=== PATIENT | male | born 1945 | race Caucasian/White ===

== ENCOUNTER 2016-07-19 15:03 | Emergency (ER) | payer OTHER ==
[~2016-07-19] VITALS: Ht 170.2 cm; Wt 83.3 kg
[~2016-07-19 15:03] MED LIST: BEE500CH2 PO
[2016-07-19 15:06] VITALS: TEMP 37; Ht 170.2 cm; Wt 83.3 kg
[2016-07-19] MEDS ORDERED: ALBUTEROL HFA 8 GM INHALER INH ONE (17:00)
[2016-07-19] MEDS ORDERED: AZITHROMYCIN 250 MG TAB PO ONE (17:00)
[2016-07-19] MEDS ORDERED: BENZONATATE 100MG CAP PO ONE (17:00)
--- NOTE | 2016-07-19 17:16 | DIAGNOSTIC IMAGING REPORT ---
CHEST ONE VIEW PORTABLE CLINICAL HISTORY: cough dyspnea COMPARISON STUDY: No previous studies for comparison. FINDINGS: The bones soft tissues and hemidiaphragms are normal. The cardiomediastinal silhouette is normal. The lungs are clear. The pulmonary vasculature is normal. IMPRESSION: Negative chest. Electronically signed by: Francisco Robles M.D. 07/19/2016 5:14 PM Dictated Date/Time: 07/19/2016 5:14 PM
[2016-07-19] MEDS ORDERED: BENZ1CAP90 PO (17:35)
[2016-07-19] MEDS ORDERED: AZITTAB PO (17:35)
--- NOTE | 2016-07-19 17:36 | EMERGENCY ROOM VISIT NOTE ---
History Report prepared by Christopher: Sarah Rodriguez Under the Supervision of: Dr. José Miguel eVga D.O. First contact with patient: 16:47 Chief Complaint: COUGH Stated Complaint: CHEST PAIN, COUGH Nursing Triage Summary: pt has cough started 3 weeks ago unable to bring it up and out. has chest congestion. has white clear mucus with cough History of Present Illness The patient is a 71 year old male who presents to the Emergency Room with complaints of a constant cough beginning 3 weeks prior to arrival. The patient notes that the cough is primarily a dry one with occasional white sputum. He does note he is congested. The patient's family recently had the same symptoms He denies any other symptoms at this time. Source of History: patient Onset: 3 weeks RECORDS MANAGER Position: other Quality: other (cough) Timing: constant Note: Patient is experiencing congestion and sputum. He denies any other symptoms at this time. Review of Systems See HPI for pertinent positives & negatives. A total of 10 systems reviewed and were otherwise negative. Past Medical & Surgical Medical Problems: (1) Chicken pox (2) No significant medical problems Surgical Problems: (1) No significant past surgical history Family History Asthma Social History Smoking Status: Never Smoker Alcohol Use: none Marital Status: Housing Status: lives with family Occupation Status: retired Current/Historical Medications Scheduled Azithromycin (Zithromax Z-Dagoberto), 0 PO UD Bee Pollen (Bee Pollen), Unknown Dose PO DAILY Glucosamine-Chondroitin (Osteo Bi-Flex Regular Str), 1 TAB PO DAILY Multiple Vitamins W/ Minerals (Centrum), 1 TAB PO DAILY Scheduled PRN Benzonatate (Tessalon Perles), 200 MG PO Q4H PRN for Cough Allergies Coded Allergies: Latex (Verified Allergy, Intermediate, rash, 07/19/16) Physical Exam Vital Signs Date Time Temp Pulse Resp B/P Pulse Ox O2 Delivery O2 Flow Rate FiO2 07/19/16 16:36 70 07/19/16 16:34 68 20 142/84 97 Room Air 07/19/16 15:06 37.0 89 18 122/86 94 Room Air Pain Rating (0-10): 0 Physical Exam CONSTITUTIONAL/VITAL SIGNS: Reviewed / noted above. GENERAL: Non-toxic in appearance. INTEGUMENTARY: Warm, dry, and [place]. HEAD: Normocephalic. EYES: without scleral icterus or trauma. ENT/OROPHARYNX: clear and moist. LYMPHADENOPATHY/NECK: Is supple without lymphadenopathy or meningismus. RESPIRATORY: Lungs clear and equal. CARDIOVASCULAR: Regular rate and rhythm. GI/ABDOMEN: Soft and nontender. No organomegaly or pulsatile mass. No rebound or guarding. Normal bowel sounds. EXTREMITIES: Warm and well perfused. BACK: No CVA tenderness. NEUROLOGICAL: Intact without focal deficits. PSYCHIATRIC: normal affect. MUSCULOSKELETAL: Normally developed with good muscle tone. Medical Decision & Procedures ER Provider Diagnostic Interpretation: X ray results and stated below per my interpretation and radiology interpretation. CHEST ONE VIEW PORTABLE CLINICAL HISTORY: cough dyspnea COMPARISON STUDY: No previous studies for comparison. FINDINGS: The bones soft tissues and hemidiaphragms are normal. The cardiomediastinal silhouette is normal. The lungs are clear. The pulmonary vasculature is normal. IMPRESSION: Negative chest. Electronically signed by: Francisco Robles M.D. 07/19/2016 5:14 PM Dictated Date/Time: 07/19/2016 5:14 PM Medications Administered Medications (Trade) Dose Ordered Sig/Wang Route Start Time Stop Time Status Last Admin Dose Admin Albuterol (Ventolin Hfa Inhaler) 2 puffs NOW ONCE INH 07/19/16 17:00 07/19/16 17:01 DC 07/19/16 17:21 2 PUFFS Benzonatate (Tessalon Perles Cap) 100 mg NOW ONCE PO 07/19/16 17:00 07/19/16 17:01 DC 07/19/16 17:21 100 MG Azithromycin (Zithromax Tab) 500 mg NOW ONCE PO 07/19/16 17:00 07/19/16 17:01 DC 07/19/16 17:20 500 MG ED Course 1647: Previous medical records were reviewed. The patient was evaluated in room B10. A complete history and physical examination was performed. 1700: Zithromax Tab 500 mg PO, Tessalon Perles Cap 100 mg PO, Ventolin Hfa Inhaler 2 puffs INH. 1737: On reevaluation, the patient is hemodynamically stable. I discussed the results and findings with the patient. He verbalized agreement of the treatment plan. He was discharged home. Medical Decision the differential was considered includes acute myocardial infarction, acute coronary syndrome, myocarditis, pericarditis, pericardial effusions /tamponade, esophageal perforation, pulmonary embolism, pneumonia, pneumothorax, cardiomyopathy, congestive heart, anemia , COPD/asthma exacerbation. This is a 71-year-old male who presents to the ED with a chief complaint of a cough for the past 4 weeks. He states that the cough is bad at times that he cannot sleep. He denies any other significant symptoms. He states it is a dry cough. The patient's exam was unremarkable. The lungs appear to be diminished but clear. A chest x-ray did not show acute disease. The patient was given Tessalon Perles, Zithromax and a albuterol inhaler. He was discharged on these. He will follow-up with his PCP or return if symptoms worsen. Impression Primary Impression: Acute bronchitis Scribe Attestation The scribe's documentation has been prepared under my direction and personally reviewed by me in its entirety. I confirm that the note above accurately reflects all work, treatment, procedures, and medical decision making performed by me. Departure Information Dispostion Home / Self-Care Prescriptions Azithromycin (ZITHROMAX Z-DAGOBERTO) 250 Mg Tab 0 PO UD, #1 PKT 2 TABS DAY 1, THEN 1 TAB DAILY FOR 4 DAYS Prov: José Miguel Vega D.O. 07/19/16 Benzonatate (Tessalon Perles) 200 Mg Cap 200 MG PO Q4H Y for Cough, #20 CAP Prov: José Miguel Vega D.O. 07/19/16 Referrals No Doctor, Assigned (PCP) Forms HOME CARE DOCUMENTATION FORM, IMPORTANT VISIT INFORMATION Patient Instructions Bronchitis Acute, My [facility] Additional Instructions Zithromax as prescribed. Albuterol inhaler 2 puffs every 4 hours as needed. Tessalon Perles as prescribed,.
[2016-07-19 18:01] VITALS: BP 120/74; PULSE 69; O2SAT 93
[2016-11-18] MEDS ORDERED: GLUCTAB18 PO (16:41)
[2016-11-18] MEDS ORDERED: MULTTAB5 PO (16:41)
== END 2016-07-19 18:02 | disposition home or self-care (01) ==
LOC: C.EDB 15:05
DX: J20.9 Acute bronchitis, unspecified (principal)

== ENCOUNTER 2016-08-04 00:50 | Emergency (ER) | payer OTHER ==
[~2016-08-04] VITALS: Ht 170.2 cm; Wt 85.9 kg
[~2016-08-04 00:50] MED LIST changes: +BENZ1CAP90 PO
[2016-08-04 00:52] VITALS: TEMP 36.7; Ht 170.2 cm; Wt 85.9 kg
[2016-08-04] MEDS ORDERED: DOXYCYCLINE HYCLATE 100 MG CAP PO STA (01:07)
--- NOTE | 2016-08-04 01:12 | EMERGENCY ROOM VISIT NOTE ---
ED Visit Note First contact with patient: 00:57 CHIEF COMPLAINT: Tick bite HISTORY OF PRESENT ILLNESS: This patient noticed a tick embedded in the right side of the abdomen/flank this evening. The patient states that he believes he received a take yesterday when he went [facility] a [facility]. He noticed it this evening. He is unsure of the total duration and is been in the side. There is a small area of red around the tick that is still in the side. He denies any fevers, chills, flulike symptoms or any joint pain. REVIEW OF SYSTEMS: A complete 6-point Review of Systems was discussed with the patient, with pertinent positives and negatives listed in the History of Present Illness. All remaining Review of Systems questions can be considered negative unless otherwise specified. PMH: No pertinent past medical history. SOCIAL HISTORY: Patient lives at home. PHYSICAL EXAM: Vital Signs: Reviewed Nurse's notes. There is a small zone of erythema surrounding a live tick in the right flank. The skin is otherwise clear. NEUROLOGICAL: Alert and cooperative. Sensory and motor functions grossly intact. ED COURSE: Patient was seen and evaluated as above. He was evidence of a live tick in the patient's right flank. The tick is not engorged. The tick was removed without difficulty utilizing a tick remover. Patient tolerated this well. He was given 200 mg of doxycycline as a total duration of the tick was unknown. No evidence of Lyme disease at this time. He was given his Adacel vaccination as he states he is unsure if he is up-to-date. He was educated upon worrisome symptoms which to return, and educated follows family doctor regarding today's visit and for recheck of his blood pressure. He was discharged home in good condition. Problem List Medical Problems: (1) Chicken pox Status: Resolved Surgical Problems: (1) No significant past surgical history Status: Chronic Current/Historical Medications Scheduled Bee Pollen (Bee Pollen), Unknown Dose PO DAILY Glucosamine-Chondroitin (Osteo Bi-Flex Regular Str), 1 TAB PO DAILY Multiple Vitamins W/ Minerals (Centrum), 1 TAB PO DAILY Scheduled PRN Benzonatate (Tessalon Perles), 200 MG PO Q4H PRN for Cough Allergies Coded Allergies: Latex (Verified Allergy, Intermediate, rash, 07/19/16) Vital Signs Date Time Temp Pulse Resp B/P Pulse Ox O2 Delivery O2 Flow Rate FiO2 08/04/16 00:52 36.7 85 20 151/99 94 Room Air Medications Administered Medications (Trade) Dose Ordered Sig/Wang Route Start Time Stop Time Status Last Admin Dose Admin Doxycycline Hyclate (Vibramycin Cap) 200 mg ONE STAT PO 08/04/16 01:07 08/04/16 01:08 DC 08/04/16 01:15 200 MG Departure Information Impression Primary Impression: Tick bite Dispostion Home / Self-Care Condition GOOD Referrals Emilie Lala PA-C (PCP) Patient Instructions My [facility] Additional Instructions You were seen in the emergency Department for a tick bite. You were given 200 mg of doxycycline to help prevent potential Lyme disease. Please watch for symptoms of Lyme disease: Early Signs and Symptoms (3 to 30 days after tick bite) Fever, chills, headache, fatigue, muscle and joint aches, and swollen lymph nodes Erythema migrans (EM) rash: Occurs in approximately 70 to 80 percent of infected persons Begins at the site of a tick bite after a delay of 3 to 30 days (average is about 7 days) Expands gradually over a period of days reaching up to 12 inches or more (30 cm ) across May feel warm to the touch but is rarely itchy or painful Sometimes clears as it enlarges, resulting in a target or bull's-eye appearance May appear on any area of the body Later Signs and Symptoms (days to months after tick bite) Severe headaches and neck stiffness Additional EM rashes on other areas of the body Arthritis with severe joint pain and swelling, particularly the knees and other large joints. Facial palsy (loss of muscle tone or droop on one or both sides of the face) Intermittent pain in tendons, muscles, joints, and bones Heart palpitations or an irregular heart beat (Lyme carditis) Episodes of dizziness or shortness of breath Inflammation of the brain and spinal cord Nerve pain Shooting pains, numbness, or tingling in the hands or feet Problems with short-term memory Please follow-up with your family doctor if you develop these. Please return to the emergency department with any new/concerning symptoms.
--- NOTE | 2016-08-04 01:26 | EMERGENCY ROOM VISIT NOTE ---
ED Visit Note First contact with patient: 00:57 I saw this patient in conjunction with Nik Schwarz PA-C. I agree with his decision-making and treatment plan.
[2016-08-04] MEDS ORDERED: DIPHTHERIA/TETANUS/PERTUSSIS 0.5 ML SYR/VIAL IM. ONE (01:30)
[2016-08-04 01:38] VITALS: BP 149/97; PULSE 91; O2SAT 98
[2017-02-23] MEDS ORDERED: GLUCTAB18 PO (16:41)
[2017-02-23] MEDS ORDERED: MULTTAB5 PO (16:41)
== END 2016-08-04 01:39 | disposition home or self-care (01) ==
LOC: C.EDB 00:51 → C.EDD 01:39
DX: S30.870A Other superficial bite of lower back and pelvis, initial encounter (principal); W57.XXXA Bitten or stung by nonvenomous insect and other nonvenomous arthropods, initial encounter; Z23 Encounter for immunization

== ENCOUNTER 2016-11-18 20:12 | Emergency (ER) | payer OTHER ==
[~2016-11-18] VITALS: Ht 170.2 cm; Wt 84.9 kg
[~2016-11-18 20:12] MED LIST changes: -BEE500CH2 PO; -BENZ1CAP90 PO; +GLUCTAB18 PO; +MULTTAB5 PO
[2016-11-18 20:15] VITALS: TEMP 37; Ht 170.2 cm; Wt 84.9 kg
[2016-11-18] MEDS ORDERED: BCTCR/30 EXT (20:29)
[2016-11-18] MEDS ORDERED: DPRSCR15 TOP (20:29)
[2016-11-18] MEDS ORDERED: [UNRECOGNIZED DRUG - CODE] TOP (20:29)
[2016-11-18] MEDS ORDERED: METH4PAK PO (21:45)
--- NOTE | 2016-11-18 21:47 | EMERGENCY ROOM VISIT NOTE ---
History First contact with patient: 20:22 Chief Complaint: RASH Stated Complaint: RED ITCHY RASH History of Present Illness The patient is a 71 year old male who presents to the Emergency Room with complaints of a red itchy rash times one month. The patient states that one month ago after hiking in the [place], he developed a rash on his right arm. He states that the rash has been spreading to his back, abdomen and legs and he has multiple scabbed regions. He was initially seen by his primary care provider, who sent him to a waste machine operator. The waste machine operator prescribed him prednisone, mupirocin and a topical steroid which she has been using without relief. He states that he finished the prednisone a few weeks ago. He has a history of measles, mumps and chickenpox as a child. He states that the rash is itchy, but not painful. He denies any new medications, detergents or soaps. Review of Systems A complete 10 point review of systems was reviewed with the patient with pertinent positives and negatives as per history of present illness. All else were negative. Past Medical/Surgical History Medical Problems: (1) Chicken pox (2) No significant medical problems Surgical Problems: (1) No significant past surgical history Family History Asthma Social History Smoking Status: Never Smoker Alcohol Use: none Marital Status: Housing Status: lives with family Occupation Status: retired Current/Historical Medications Scheduled Glucosamine-Chondroitin (Osteo Bi-Flex Regular Str), 1 TAB PO DAILY Homeopathic Products (Tecnu Extreme Medicated P), 1 APPLN TOP prn Methylprednisolone (Medrol Dosepak), 0 PO DAILY Multiple Vitamins W/ Minerals (Centrum), 1 TAB PO DAILY Mupirocin 2% (Bactroban 2%), 1 APPLN EXT UD Scheduled PRN Betamethasone Dip (Betamethasone Dipropionat), 1 APPLN TOP BID PRN for RASH Physical Exam Vital Signs Date Time Temp Pulse Resp B/P (MAP) Pulse Ox O2 Delivery O2 Flow Rate FiO2 11/18/16 21:59 73 18 146/78 95 11/18/16 20:15 37.0 88 20 134/85 96 Room Air Physical Exam VITALS: Vitals are noted on the nurse's note and reviewed by myself. Vital signs stable. GENERAL: This is a 71-year-old male, in no acute distress, nondiaphoretic, well- developed well-nourished. SKIN: There is an erythematous, raised rash to bilateral arms as well as multiple crusted lesions to the chest and back. This is blanchable. There are no vesicular lesions. HEART: Regular rate and rhythm without murmurs gallops or rubs. LUNGS: Clear to auscultation bilaterally without wheezes, rales or rhonchi. NEURO: Patient was alert and oriented to person place and time. Medical Decision & Procedures Medical Decision Differential diagnosis includes Trammell-Ike syndrome, contact dermatitis, allergic dermatitis, shingles, chickenpox, among others. The patient was evaluated as above. His rash is most consistent with a contact dermatitis, although there are some areas which appear to be mildly secondarily infected. The patient will be placed on a Medrol Dosepak and was instructed to continue the topical medications prescribed by the waste machine operator. He was instructed to again follow-up with the waste machine operator for further recommendations. He verbalized understanding of my assessment and treatment plan and was discharged home in good condition. Medication Reconcilliation Current Medication List: was personally reviewed by me Blood Pressure Screening Patient's blood pressure: Elevated blood pressure Blood pressure disposition: Elevated BP felt to be situational Impression Primary Impression: Contact dermatitis Departure Information Dispostion Home / Self-Care Condition GOOD Prescriptions Methylprednisolone (MEDROL DOSEPAK) 4 Mg Dagoberto 0 PO DAILY, #1 PKT Prov: Franchesca Arredondo .KEL 11/18/16 Referrals Emilie Lala PA-C (PCP) Patient Instructions My [facility] Additional Instructions You have been prescribed a Medrol Dosepak. This is a steroid which will help decrease your inflammation, redness, and itch. Take the medicine as prescribed. Take the ENTIRE 6 day course of the steroids. You should take Benadryl (diphenhydramine) 25-50 mgs every 6 hours as needed for symptoms. You can find this medicine [id number]. Benadryl can help reduce your symptoms. You should take it for the next 3 days or until your symptoms have subsided. Be aware that Benadryl can make you drowsy. If the Benadryl makes you drowsy, you may try an antihistamine such as Claritin , Zyrtec, or Faith over the counter. Follow-up with your waste machine operator for further evaluation. Problem Qualifiers Primary Impression: Contact dermatitis
[2016-11-18 21:59] VITALS: BP 146/78; PULSE 73; O2SAT 95
== END 2016-11-18 22:00 | disposition home or self-care (01) ==
LOC: C.EDB 20:13 → C.EDD 22:00
DX: L25.9 Unspecified contact dermatitis, unspecified cause (principal); Z82.5 Family history of asthma and other chronic lower respiratory diseases

== ENCOUNTER 2017-02-23 17:19 | Emergency (ER) | payer OTHER ==
[~2017-02-23] VITALS: Ht 170.2 cm; Wt 85.8 kg
[~2017-02-23 17:19] MED LIST changes: +BCTCR/30 EXT; +DPRSCR15 TOP; +[UNRECOGNIZED DRUG - CODE] TOP
[2017-02-23 17:24] VITALS: TEMP 36.7; Ht 170.2 cm; Wt 85.8 kg
[2017-02-23] MEDS ORDERED: hydrOXYzine HCL 25 MG TAB PO STA (17:44)
[2017-02-23] MEDS ORDERED: [UNRECOGNIZED DRUG - CODE] TOP (18:08)
[2017-02-23 18:09] LABS: BASO % 0.7 %; BASO ABS # 0.05 K/uL (0-0.2); COMPLETE YES; EOS % 4.7 %; IG% 2.3 %; LYMPH ABS # 1.71 K/uL (1.2-3.4); MEAN CELL VOLUME 87.5 fL (80-100); MEAN CORPUSCULAR HEMOGLOBIN 30.5 pg (25-34); MEAN CORPUSCULAR HGB CONC 34.9 g/dl (32-36); MONO % 7.9 %; NEUT % 61.4 %; PLATELET COUNT 197 K/uL (130-400); RED BLOOD COUNT 5.14 M/uL (4.7-6.1); WHITE BLOOD COUNT 7.43 K/uL (4.8-10.8)
[2017-02-23 18:30] LABS: BUN/CREATININE RATIO 18.5 (10-20); CALCIUM 9.4 mg/dl (8.5-10.1); CREATININE 1.03 mg/dl (0.60-1.40); POTASSIUM 4.1 mmol/L (3.5-5.1)
[2017-02-23 18:33] LABS: ALB/GLOB RATIO 1.2 (0.9-2)
--- NOTE | 2017-02-23 18:38 | EMERGENCY ROOM VISIT NOTE ---
ED Visit Note First contact with patient: 17:29 CHIEF COMPLAINT: Rash, itchiness HISTORY OF PRESENT ILLNESS: This 72-year-old male patient presents to the emergency department ambulatory, complaining of a rash on his arms, back, torso , abdomen, which started approximately 4-5 months ago. The patient states he had been out hiking in the [place] in [place], and then has been experiencing this rash. He was seen here in October for the rash and was given a Medrol Dosepak. He states he did see the form grader was prescribed prednisone, however his does not feel that the prednisone was a high enough dosage. Instead of contacting the form grader, the patient just never went back, and has been dealing with a rash on his own. He states he believes he is allergic to Benadryl, and is unable to take the medication due to some sort of side effect he may have had as a child. He has been using OTC cortisone 10, however has been using no other creams. The patient has not had any recent lab work completed. He states the only thing that helps is cool water. The prednisone did help with his symptoms, however, it did not seem to be quite enough. The patient denies fever, chills, nausea, or loss of appetite. They deny any URI symptoms. The patient states the rash is itchy and rates the discomfort as 0/ 10. No change in food, soap, detergents, or other environmental factors. No new medications. No weakness or numbness. REVIEW OF SYSTEMS: A 6 system review of systems was completed with positives and pertinent negatives listed in the HPI. ALLERGIES: Latex paint, Benadryl MEDICATIONS: See list PMH: None SOCIAL HISTORY: Lives locally with family. He denies drug, alcohol, tobacco use. PHYSICAL EXAM: Vital Signs: Reviewed Nurse's notes, vital signs stable. GENERAL : This is a 72-year-old white male, in no acute distress, well-developed, well- nourished. SKIN: There are patchy, erythematous lesions which have a fine, silvery scale overlying them. Excoriations are noted on bilateral arms. Capillary refill less than 2 seconds. EMERGENCY DEPARTMENT COURSE: He was seen and evaluated as above. Basic lab work was drawn due to his history of chronic rash. The patient was given hydroxyzine and did note improvement in his itchiness. I discussed the case with Dr. Sahu, who did see and evaluate the patient. Patient will be discharged on prednisone and hydroxyzine. I discussed with him the importance of following up with dermatology. The patient states he does not know if he wants to go back to the form grader he had previously seen, as this form grader looks like Cris. The patient was provided with a list of dermatologists and encouraged to follow-up with one of them outpatient. Discharge instructions reviewed and the patient was discharged home in good condition. I attest that I have personally reviewed the patient's current medication list. Patient was found to have normal blood pressure on screening and does not require follow-up. DIFFERENTIAL DIAGNOSIS: Dermatitis, eczema, poison, psoriasis, fungal infection , candidiasis, liver disease, malignancy, and others DIAGNOSIS: Eczema, psoriasis Problem List Medical Problems: (1) Chicken pox Status: Resolved Surgical Problems: (1) No significant past surgical history Status: Chronic Current/Historical Medications Scheduled Glucosamine-Chondroitin (Osteo Bi-Flex Regular Str), 2 TABS PO DAILY Multiple Vitamins W/ Minerals (Centrum), 1 TAB PO DAILY Prednisone (Prednisone), 0 PO DAILY Scheduled PRN Hydroxyzine Pamoate (Vistaril), 25-50 MG PO Q6H PRN for Itching [Cortisone-10], 1 APPLN TOP UD PRN for Rash Allergies Uncoded Allergies: LATEX PAINT (Allergy, Unknown, Rash, 02/23/17) Vital Signs Date Time Temp Pulse Resp B/P (MAP) Pulse Ox O2 Delivery O2 Flow Rate FiO2 02/23/17 19:12 63 163/104 95 02/23/17 17:24 36.7 80 20 166/95 96 Room Air Laboratory Results 02/23/17 17:55 Red Blood Count 5.14, Mean Corpuscular Volume 87.5, Mean Corpuscular Hemoglobin 30.5, Mean Corpuscular Hemoglobin Concent 34.9, Mean Platelet Volume 9.0, Neutrophils (%) (Auto) 61.4, Lymphocytes (%) (Auto) 23.0, Monocytes (%) (Auto) 7.9, Eosinophils (%) (Auto) 4.7, Basophils (%) (Auto) 0.7, Neutrophils # (Auto) 4.56, Lymphocytes # (Auto) 1.71, Monocytes # (Auto) 0.59, Eosinophils # (Auto) 0.35, Basophils # (Auto) 0.05 02/23/17 17:55 Test 02/23/17 17:55 White Blood Count 7.43 K/uL (4.8-10.8) Red Blood Count 5.14 M/uL (4.7-6.1) Hemoglobin 15.7 g/dL (14.0-18.0) Hematocrit 45.0 % (42-52) Mean Corpuscular Volume 87.5 fL (80-100) Mean Corpuscular Hemoglobin 30.5 pg (25-34) Mean Corpuscular Hemoglobin Concent 34.9 g/dl (32-36) Platelet Count 197 K/uL (130-400) Mean Platelet Volume 9.0 fL (7.4-10.4) Neutrophils (%) (Auto) 61.4 % Lymphocytes (%) (Auto) 23.0 % Monocytes (%) (Auto) 7.9 % Eosinophils (%) (Auto) 4.7 % Basophils (%) (Auto) 0.7 % Neutrophils # (Auto) 4.56 K/uL (1.4-6.5) Lymphocytes # (Auto) 1.71 K/uL (1.2-3.4) Monocytes # (Auto) 0.59 K/uL (0.11-0.59) Eosinophils # (Auto) 0.35 K/uL (0-0.5) Basophils # (Auto) 0.05 K/uL (0-0.2) RDW Standard Deviation 41.8 fL (36.4-46.3) RDW Coefficient of Variation 13.1 % (11.5-14.5) Immature Granulocyte % (Auto) 2.3 % Immature Granulocyte # (Auto) 0.17 K/uL (0.00-0.02) Anion Gap 5.0 mmol/L (3-11) Est Creatinine Clear Calc Drug Dose 69.8 ml/min Estimated GFR () 84.9 Estimated GFR (Non- 73.3 BUN/Creatinine Ratio 18.5 (10-20) Calcium Level 9.4 mg/dl (8.5-10.1) Total Bilirubin 0.5 mg/dl (0.2-1) Aspartate Amino Transf (AST/SGOT) 43 U/L (15-37) Alanine Aminotransferase (ALT/SGPT) 53 U/L (12-78) Alkaline Phosphatase 69 U/L (45-117) Total Protein 7.6 gm/dl (6.4-8.2) Albumin 4.2 gm/dl (3.4-5.0) Globulin 3.4 gm/dl (2.5-4.0) Albumin/Globulin Ratio 1.2 (0.9-2) Medications Administered Medications (Trade) Dose Ordered Sig/Wang Route Start Time Stop Time Status Last Admin Dose Admin Hydroxyzine HCl (Vistaril Tab) 25 mg NOW STAT PO 02/23/17 17:44 02/23/17 17:45 DC 02/23/17 17:49 25 MG Departure Information Impression Primary Impression: Psoriasis Additional Impression: Eczema Dispostion Home / Self-Care Condition GOOD Prescriptions Hydroxyzine Pamoate (VISTARIL) 25 Mg Cap 25-50 MG PO Q6H Y for Itching, #30 CAP Prov: Shelia Jacobsen PA-C 02/23/17 Prednisone (Prednisone) 20 Mg Tab 0 PO DAILY, #18 TAB 3 DAILY FOR 3 DAYS, THEN 2 DAILY FOR 3 DAYS, THEN 1 DAILY FOR 3 DAYS. Prov: Shelia Jacobsen PA-C 02/23/17 Referrals Emilie Lala PA-C (PCP) Patient Instructions ED Dermatitis Atopic Eczema, [facility] Additional Instructions You were seen in the emergency department for a chronic rash. As discussed, you should follow-up with dermatology. You have been prescribed Prednisone. This is a steroid which will help decrease your inflammation, redness, and itch. Take this medicine as prescribed. Take the ENTIRE 9 day course. It is best to take steroids early in the morning as PM dosing can affect your sleeping patterns. You were prescribed hydroxyzine for itchiness. Please take this medication as directed. Please follow-up with dermatology. You were provided with a list of dermatologists in the area. Return to the ED for worsening rash, pus-like drainage, or fever. Follow-up in 2-3 days with your PCP for management until you can make it to dermatology. Problem Qualifiers Additional Impression: Eczema Eczema type: unspecified Qualified Codes: L30.9 - Dermatitis, unspecified
--- NOTE | 2017-02-23 18:39 | EMERGENCY ROOM VISIT NOTE ---
ED Visit Note First contact with patient: 17:29 I have personally evaluated this patient examined her and reviewed the pertinent labs and data. I have discussed the case with Shelia Jacobsen, the physician workforce development assistant and agree with the plan. Please refer to the PA note. This patient presents with itching rash on mostly on his torso. It's circular and in places looks a little scaly. He has no other systemic complaints. He has no mucous membrane involvement. He has no shortness of breath. He has no fever. He's been seen by team manager and was doing well on steroids when he was on them. On my exam, he is resting comfortably and appears in no distress. We will put him back on steroids and have him follow-up with dermatology.
[2017-02-23 19:12] VITALS: BP 163/104; PULSE 63; O2SAT 95
[2017-02-23] MEDS ORDERED: PRED20TA PO (19:28)
[2017-02-23] MEDS ORDERED: HYDR1CAP85 PO (19:29)
== END 2017-02-23 19:13 | disposition home or self-care (01) ==
LOC: C.EDB 17:20 → C.EDD 19:13
DX: L40.9 Psoriasis, unspecified (principal); L30.9 Dermatitis, unspecified

== ENCOUNTER 2017-08-15 18:23 | Emergency (ER) | payer OTHER ==
[~2017-08-15] VITALS: Ht 170.2 cm; Wt 82.8 kg
[~2017-08-15 18:23] MED LIST changes: -BCTCR/30 EXT; -DPRSCR15 TOP; +PRED20TA PO; +[UNRECOGNIZED DRUG - CODE] TOP; -[UNRECOGNIZED DRUG - CODE] TOP
[2017-08-15 18:26] VITALS: TEMP 36.6; Ht 170.2 cm; Wt 82.8 kg
--- NOTE | 2017-08-15 18:36 | EMERGENCY ROOM VISIT NOTE ---
History Report prepared by Christopher: Quentin Mallory Under the Supervision of: Dr. Lake Terrazas M.D. First contact with patient: 18:32 Chief Complaint: SKIN PROBLEM Stated Complaint: WELTS,SCABS,ITCHING,BURNING OF ARMS,LEGS,BACK History of Present Illness The patient is a 72 year old white male with a past medical history of an appendectomy who presents to the ED with a cc of worsening, itchy, rash beginning a year ago. Pt states he was [place] in [place] when he developed bumps on his right arm. He reports it now spread to his back and legs. Pt notes he tries washing it and putting cream on it, but it does not help. He states he was bit by a tick last year, but he was treated for it. Positive being evaluated by a mail superintendent, taking an antibiotic, and taking a steroid. Negative changes in detergent, creams, or clothing, and alcohol use. Source of History: patient Onset: one year ago Position: arm (bilateral), back, leg (bilateral) Quality: other (itchy rash) Timing: worsening Note: Associated symptoms: tick bite that was treated Denies: changes in detergent, creams, or clothing Review of Systems See HPI for pertinent positives and negatives. A total of ten systems were reviewed and were otherwise negative. Past Medical & Surgical Medical Problems: (1) Chicken pox (2) History of appendectomy Family History Asthma Hypertension Social History Smoking Status: Never Smoker Alcohol Use: none Marital Status: Housing Status: lives with family Occupation Status: retired Current/Historical Medications Scheduled Multiple Vitamins W/ Minerals (Centrum), 1 TAB PO DAILY Allergies Uncoded Allergies: LATEX PAINT (Allergy, Unknown, Rash, 02/23/17) Physical Exam Vital Signs Date Time Temp Pulse Resp B/P (MAP) Pulse Ox O2 Delivery O2 Flow Rate FiO2 08/15/17 19:14 59 18 146/72 98 Room Air 08/15/17 18:26 36.6 67 18 133/78 96 Room Air Physical Exam GENERAL: Awake, alert, well-appearing, NAD HENT: Normocephalic, atraumatic. EYES: Normal conjunctiva. Sclera non-icteric. NECK: Supple. No nuchal rigidity. FROM. RESPIRATORY: CTAB, no rhonchi, wheezing, crackles CARDIAC: RRR, no MRG ABDOMEN: Soft, NTND, BS+ MSK: No chest wall TTP, no LE edema NEURO: GCS 15, CN 2-12 intact, moves all 4s on command SKIN: No jaundice noted. Confluent redness over the extensor surface of the bilateral upper extremities. Diffuse, more scant and in patches over the anterior shins. Several macules to over the abdomen. Forearms have well healing eschar. Medical Decision & Procedures Laboratory Results 08/15/17 19:10 Red Blood Count 4.57, Mean Corpuscular Volume 87.5, Mean Corpuscular Hemoglobin 30.4, Mean Corpuscular Hemoglobin Concent 34.8, Mean Platelet Volume 9.0, Neutrophils (%) (Auto) 69.1, Lymphocytes (%) (Auto) 16.8, Monocytes (%) (Auto) 7.3, Eosinophils (%) (Auto) 5.8, Basophils (%) (Auto) 0.4, Neutrophils # (Auto) 4.89, Lymphocytes # (Auto) 1.19, Monocytes # (Auto) 0.52, Eosinophils # (Auto) 0.41, Basophils # (Auto) 0.03 08/15/17 19:10 Test 08/15/17 19:10 White Blood Count 7.08 K/uL (4.8-10.8) Red Blood Count 4.57 M/uL (4.7-6.1) Hemoglobin 13.9 g/dL (14.0-18.0) Hematocrit 40.0 % (42-52) Mean Corpuscular Volume 87.5 fL (80-100) Mean Corpuscular Hemoglobin 30.4 pg (25-34) Mean Corpuscular Hemoglobin Concent 34.8 g/dl (32-36) Platelet Count 223 K/uL (130-400) Mean Platelet Volume 9.0 fL (7.4-10.4) Neutrophils (%) (Auto) 69.1 % Lymphocytes (%) (Auto) 16.8 % Monocytes (%) (Auto) 7.3 % Eosinophils (%) (Auto) 5.8 % Basophils (%) (Auto) 0.4 % Neutrophils # (Auto) 4.89 K/uL (1.4-6.5) Lymphocytes # (Auto) 1.19 K/uL (1.2-3.4) Monocytes # (Auto) 0.52 K/uL (0.11-0.59) Eosinophils # (Auto) 0.41 K/uL (0-0.5) Basophils # (Auto) 0.03 K/uL (0-0.2) RDW Standard Deviation 41.2 fL (36.4-46.3) RDW Coefficient of Variation 12.9 % (11.5-14.5) Immature Granulocyte % (Auto) 0.6 % Immature Granulocyte # (Auto) 0.04 K/uL (0.00-0.02) Erythrocyte Sedimentation Rate 12 mm/hr (0-14) Anion Gap 4.0 mmol/L (3-11) Est Creatinine Clear Calc Drug Dose 68.7 ml/min Estimated GFR () 84.9 Estimated GFR (Non- 73.3 BUN/Creatinine Ratio 17.1 (10-20) Calcium Level 8.7 mg/dl (8.5-10.1) C-Reactive Protein 0.58 mg/dl (0-0.29) Lyme Disease IgG Antibody NEG (NEG) Lyme Disease IgM Antibody NEG (NEG) Laboratory results reviewed by me ED Course 1841: The patient was evaluated in room B03B. A complete history and physical exam was performed. 2100: I reevaluated the patient. Discussed results and discharge instructions: he verbalized understanding and agreement. The patient is ready for discharge. Medical Decision The patient is a 72 year old white male with a past medical history of an appendectomy who presents to the ED with a cc of worsening rash beginning a year ago. Differential diagnosis: Etiologies such as contact dermatitis, viral exanthem, urticaria, allergic reaction, Trammell-Ike syndrome, toxic epidermal necrolysis, erythema multiforme, cellulitis, scabies, HSV, varicella, zoster, eczema, staph scalded skin syndrome, fungal infection, as well as others were entertained. Patient was seen and evaluated the bedside. Patient has had a persistent skin issue which started after hiking and initially began on the arms then spread to his abdomen as well as his legs. Patient has seen a PCP as well as a mail superintendent without a clear answer. Patient has tried several skin creams or lotions. Patient denies any recent changes. Patient does state that it is itchy. They did have a concern about possible cellulitis. On exam the patient does have a scaly confluent red rash. He does have some eschars likely from scratching over the arms. He does have a little more scant rash over the abdomen as well as legs. They are on the extensor surfaces. Thinking possible dermatitis versus eczema versus possible psoriasis although there are not a lot of plaques noted. Could be a variation of this. Patient did have blood work completed along with ESR, CRP and did have a Lyme's test. Patient amount of mild anemia. White blood cell count within normal limits. Kidney function normal. ESR was normal. CRP was tracely elevated. The patient was further told to not wash his itchy areas so often as this can cause desiccation to the skin. He was also told to use a mild soap. Patient was told he could try oatmeal baths for itching. Patient was advised to take cetirizine daily and to use Benadryl as needed. Patient was told he could use calamine if needed. I did discuss with case making machine operator in order to help him obtain a follow-up appointment with a mail superintendent. Given the patient's white blood cell count is normal I believe this is more of a dermatitis I do not believe it is a cellulitis and does not require antibiotic treatment at this time. Patient was also told to stop scratching as this may be making his condition worse. Patient was given strict follow-up, discharge, and return precautions. All questions were answered. Patient was deemed suitable for outpatient follow-up at this time. Patient agreed with the plan of care and was safely discharged home. Medication Reconcilliation Current Medication List: was personally reviewed by me Blood Pressure Screening Patient's blood pressure: Normal blood pressure Blood pressure disposition: Did not require urgent referral Impression Primary Impression: Dermatitis Additional Impression: Anemia Scribe Attestation The scribe's documentation has been prepared under my direction and personally reviewed by me in its entirety. I confirm that the note above accurately reflects all work, treatment, procedures, and medical decision making performed by me. Departure Information Dispostion Home / Self-Care Referrals Emilie Lala PA-C (PCP) Forms HOME CARE DOCUMENTATION FORM, IMPORTANT VISIT INFORMATION, WORK / SCHOOL INSTRUCTIONS Patient Instructions Contact Dermatitis, My [facility] Additional Instructions Please return to the emergency department if you have worsening or recurrent symptoms not amenable to at-home treatment. Please call for a follow-up appointment with her primary care physician. Please take your medications as prescribed. If you have other concerns and/or complaints please feel free to also call your primary care physician's office or return the ED for further evaluation, management, and treatment. Take your medications as prescribed. Your Lyme's test was negative. Please follow-up with a mail superintendent. These make sure you do not over wash your area. Please take a Zyrtec daily and Benadryl as needed for itching. Please apply a Vaseline petroleum jelly to the area as a protectant as well as to avoid dryness. Please do not scratch the area. When washing the area please use gentle soap and warm water. Do not use hot water. You have been examined and treated today on an emergency basis only. This is not a substitute for, or an effort to provide, complete comprehensive medical care. It is impossible to recognize and treat all injuries or illnesses in a single emergency department visit. It is therefore important that you follow up closely with [facility], your PCP, and/or your specialist(s). Call as soon as possible for an appointment. Thank you for your time and consideration. I look forward to speaking with you again soon. Please don't hesitate to call us if you have any questions. Problem Qualifiers Additional Impression: Anemia Anemia type: unspecified type Qualified Codes: D64.9 - Anemia, unspecified
[2017-08-15 19:36] LABS: BASO % 0.4 %; BASO ABS # 0.03 K/uL (0-0.2); EOS % 5.8 %; EOS ABS # 0.41 K/uL (0-0.5); HEMOGLOBIN 13.9 g/dL (14.0-18.0); IG# 0.04 K/uL (0.00-0.02); LYMPH % 16.8 %; LYMPH ABS # 1.19 K/uL (1.2-3.4); MEAN CELL VOLUME 87.5 fL (80-100); MEAN CORPUSCULAR HEMOGLOBIN 30.4 pg (25-34); MEAN CORPUSCULAR HGB CONC 34.8 g/dl (32-36); MONO % 7.3 %; MONO ABS # 0.52 K/uL (0.11-0.59); NEUT % 69.1 %; NEUT ABS # 4.89 K/uL (1.4-6.5); PLATELET COUNT 223 K/uL (130-400); RED CELL DISTRIBUTION WIDTH CV 12.9 % (11.5-14.5); RED CELL DISTRIBUTION WIDTH SD 41.2 fL (36.4-46.3); WHITE BLOOD COUNT 7.08 K/uL (4.8-10.8)
[2017-08-15 19:53] LABS: CALCIUM 8.7 mg/dl (8.5-10.1); CREATININE 1.03 mg/dl (0.60-1.40); POTASSIUM 3.8 mmol/L (3.5-5.1)
[2017-08-15 21:21] VITALS: BP 149/81; PULSE 54; O2SAT 97
== END 2017-08-15 21:22 | disposition home or self-care (01) ==
LOC: C.EDB 19:22
DX: L30.9 Dermatitis, unspecified (principal); D64.9 Anemia, unspecified; R79.82 Elevated C-reactive protein (CRP); Z91.048 Other nonmedicinal substance allergy status